=== PATIENT | female | born 1975 | race Asian ===

== ENCOUNTER 2017-03-20 16:27 | Outpatient (CLI) | payer OTHER ==
[~2017-03-20] VITALS: Ht 157.5 cm; Wt 75.9 kg
[2017-03-20 15:51] VITALS: BP 145/82; PULSE 68; RESP 16; Ht 157.5 cm; Wt 75.9 kg
--- NOTE | 2017-03-20 16:37 | PN ---
Date/Time of Note Date/Time of Note DATE: 03/20/17 TIME: 16:33 Outpatient Progress Note Chief Complaint Syncopal episode/hypoglycemia/pancreatic mass HPI Syncopal episode/patient was recently hospitalized with a syncopal episode, patient feeling stable, no headache dizziness lightness, Hypoglycemia/patient had a hypoglycemia, patient blood sugar was low, patient has pancreatic lesion, Pancreatic mass/patient has a pancreatic lesion on the tail end, no abdominal pain, Review of Systems Const: No Fever, no chills, no Wt. loss, slight fatigue, normal appetite, no diaphoresis. Eyes: No pain, no discharge, no redness, no visual change, no foreign body. ENT: No pain, no bleeding, no congestion, no sore throat, no dysphagia, no discharge or rhinitis. Lymph: No adenopathy, no tender nodes, no lymphedema. Resp: No SOB, no cough, no sputum, no wheezing, no chest pain. CV: No chest pain, no palpitaions, no GUADARRAMA, no PND, no edema. GI: Normal appetite, no pain, no nausea, no vomiting, no diarrhea, no blood, no constipation. : No frequency, no urgency, no dysuria, no hematuria, no flank pain, no discharge, no bleeding. Musc: , no back pain, no neck pain, no knee pain, no restricted ROM. Skin: No rash, no skin lesions, no erythema, no laceration, no bruising, no pruritus. Neuro: No ALEXANDRA, no dizziness, no syncope, no seizure, no focal-weakness. Endo: No polyuria, no polydypsia, no dry-skin, no temp-intolerance. Psych: No hallucinations, no depression, no anxiety, no suicidal ideation. Ext: No edema, no pain, no ulcer, no weakness. Physical Exam Vital Signs Date Time Temp Pulse Resp B/P Pulse Ox O2 Delivery O2 Flow Rate FiO2 03/20/17 15:51 98.3 68 16 145/82 97 Room Air General Appearance: A 42 year-old female who appears well-developed, well- nourished, in no acute distress. HEENT: Head normocephalic, atraumatic. Pupils equal, round, reactive to light and accommodate. Sclerae are no jaundice. Nasal turbinates pink without erythema or nasal discharge. Mucous membranes pink and moist without lesions. Oropharynx clear without any exudate or discharge. NECK: Supple. Trachea midline, No thyromegaly, No cervical lymphadenopathy, No mass, No carotid bruits, No JVD, Carotid pulses 2+ bilaterally. PULMONARY: Clear to auscultaion bilaterally, No retractions, Chest expansion symmetric bilaterally, no rales, no ronchi, no dulness on percussion. CARDIAC: Normal SI and S2, Regular rate and rythm, no murmur, gallop, or rub. GASTROINTESTINAL: Abdomen is soft, non-tender, Non Rigid, No distention, Positive bowel sounds x4 quadrants, Liver normal. SKIN: Warm, dry, no rash, no bruise, no echmosis. EXTREMITIES: Bilateral lower extremities normal, no edema, no phlabitus, pulse palpable, no contracture. MUSCULOSKELETAL: Spine Normal, Non-tender, Normal range of motion, No swelling, no deformity, no clubbing, or cyanosis, the patient has no edema to bilateral lower extremities, dorsalis pedis pulses palpable bilaterally. NEUROLOGIC: The patient is awake, alert, oriented, responding to yes/no questions appropriately, moving all extremities, cranial nerve intact, normal strenght, normal power, normal coordination, normal gait. 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
== END 2017-03-20 17:00 | disposition home or self-care (01) ==
LOC: DCC 16:27
PROVIDERS: ATTEND Internal Medicine
DX: R55 Syncope and collapse (principal); E16.2 Hypoglycemia, unspecified; K86.89 Other specified diseases of pancreas

== ENCOUNTER 2017-04-03 11:43 | Outpatient (CLI) | payer OTHER ==
[~2017-04-03] VITALS: Ht 157.5 cm; Wt 75.5 kg
[2017-04-03 12:02] VITALS: BP 127/70; PULSE 67; RESP 18; Ht 157.5 cm; Wt 75.5 kg
--- NOTE | 2017-04-03 15:45 | PN ---
Date/Time of Note Date/Time of Note DATE: 04/03/17 TIME: 15:42 Outpatient Progress Note Chief Complaint Hypoglycemia/pancreatic mass HPI Hypoglycemia/patient had low blood sugar about 55 one time after the discharge, no diaphoresis, no nausea vomiting, no any other symptom, Pancreatic mass/patient has pancreatic tail lesion, patient is being referred for surgical evaluation, Review of Systems Patient slightly overweight, const: No Fever, no chills, no Wt. loss, no Fatigue , normal appetite, no diaphoresis. Eyes: No pain, no discharge, no redness, no visual change, no foreign body. ENT: No pain, no bleeding, no congestion, no sore throat, no dysphagia, no discharge or rhinitis. Lymph: No adenopathy, no tender nodes, no lymphedema. Resp: No SOB, no cough, no sputum, no wheezing, no chest pain. CV: No chest pain, no palpitaions, no GUADARRAMA, no PND, no edema. GI: Normal appetite, no pain, no nausea, no vomiting, no diarrhea, no blood, no constipation. : No frequency, no urgency, no dysuria, no hematuria, no flank pain, no discharge, no bleeding. Musc: No bone/joint pain, no back pain, no neck pain, no knee pain, no restricted ROM. Skin: No rash, no skin lesions, no erythema, no laceration, no bruising, no pruritus. Neuro: No ALEXANDRA, no dizziness, no syncope, no seizure, no focal-weakness. Endo: No polyuria, no polydypsia, no dry-skin, no temp-intolerance. Psych: No hallucinations, no depression, no anxiety, no suicidal ideation. Ext: No edema, no pain, no ulcer, no weakness. Physical Exam Vital Signs Date Time Temp Pulse Resp B/P Pulse Ox O2 Delivery O2 Flow Rate FiO2 04/03/17 12:02 98.4 67 18 127/70 96 Room Air General Appearance: A 42 year-old female who appears well-developed, well- nourished, in no acute distress. HEENT: Head normocephalic, atraumatic. Pupils equal, round, reactive to light and accommodate. Sclerae are no jaundice. Nasal turbinates pink without erythema or nasal discharge. Mucous membranes pink and moist without lesions. Oropharynx clear without any exudate or discharge. NECK: Supple. Trachea midline, No thyromegaly, No cervical lymphadenopathy, No mass, No carotid bruits, No JVD, Carotid pulses 2+ bilaterally. PULMONARY: Clear to auscultaion bilaterally, No retractions, Chest expansion symmetric bilaterally, no rales, no ronchi, no dulness on percussion. CARDIAC: Normal SI and S2, Regular rate and rythm, no murmur, gallop, or rub. GASTROINTESTINAL: Abdomen is soft, non-tender, Non Rigid, No distention, Positive bowel sounds x4 quadrants, Liver normal. SKIN: Warm, dry, no rash, no bruise, no echmosis. EXTREMITIES: Bilateral lower extremities normal, no edema, no phlabitus, pulse palpable, no contracture. MUSCULOSKELETAL: Spine Normal, Non-tender, Normal range of motion, No swelling, no deformity, no clubbing, or cyanosis, the patient has no edema to bilateral lower extremities, dorsalis pedis pulses palpable bilaterally. NEUROLOGIC: The patient is awake, alert, oriented, responding to yes/no questions appropriately, moving all extremities, cranial nerve intact, normal strenght, normal power, normal coordination, normal gait. 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
== END 2017-04-03 16:23 | disposition home or self-care (01) ==
LOC: DCC 11:43
PROVIDERS: ATTEND Internal Medicine
DX: E16.2 Hypoglycemia, unspecified (principal); K86.2 Cyst of pancreas

== ENCOUNTER 2017-04-23 14:10 | Outpatient (CLI) | payer OTHER ==
[~2017-04-23] VITALS: Ht 157.5 cm; Wt 78.6 kg
[2017-04-23 14:20] VITALS: BP 131/67; PULSE 73; RESP 16; Ht 157.5 cm; Wt 78.6 kg
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
== END 2017-04-23 17:00 | disposition home or self-care (01) ==
LOC: HPC 14:10
PROVIDERS: ATTEND Transplant Surgery
DX: K86.9 Disease of pancreas, unspecified (principal); Z91.81 History of falling; Z80.41 Family history of malignant neoplasm of ovary; Z80.8 Family history of malignant neoplasm of other organs or systems
CPT/HCPCS: G0463